=== PATIENT | female | born 1945 | race Caucasian/White ===

== ENCOUNTER 2017-03-18 19:39 | Emergency (ER) | payer OTHER, MEDICAID ==
[~2017-03-18 19:39] MED LIST: ADA60 PO; CIPROFLOXACIN500 MG PO; DONEPEZIL HYDROC5 M2 PO; FENOFIBRATE160 M1 PO; NAMENDA10 M2 PO; PANTOPRAZOLE SO40 M1 PO; SIMVASTATIN20 M1 PO; TRAMADOL HCL50 MG PO
[2017-03-18 22:45] VITALS: BP 139/77
== END 2017-03-18 22:45 | disposition home or self-care (01) ==
LOC: ED 19:39
DX: S06.0X9A Concussion with loss of consciousness of unspecified duration, initial encounter (principal); G30.9 Alzheimer's disease, unspecified; M19.90 Unspecified osteoarthritis, unspecified site; E78.00 Pure hypercholesterolemia, unspecified; Z79.899 Other long term (current) drug therapy; W01.10XA Fall on same level from slipping, tripping and stumbling with subsequent striking against unspecified object, initial encounter; Y93.89 Activity, other specified; Y92.002 Bathroom of unspecified non-institutional (private) residence as the place of occurrence of the external cause; Y99.8 Other external cause status; Z88.5 Allergy status to narcotic agent
CPT/HCPCS: J1885; Q0162